=== PATIENT | male | born 1995 | race Caucasian/White ===

== ENCOUNTER 2016-12-04 23:24 | Emergency (ER) | payer MEDICAID ==
[2015-05-25 09:53] VITALS: BMI 20.6
== END 2016-12-05 00:53 | disposition home or self-care (01) ==
LOC: D.ER 23:24
DX: F41.9 Anxiety disorder, unspecified (principal); F17.200 Nicotine dependence, unspecified, uncomplicated

== ENCOUNTER 2017-09-27 22:54 | Emergency (ER) | payer MEDICAID ==
[2015-05-25 09:53] VITALS: BMI 20.6
== END 2017-09-28 01:14 | disposition home or self-care (01) ==
LOC: D.ER 22:54
DX: S09.93XA Unspecified injury of face, initial encounter (principal); Y04.2XXA Assault by strike against or bumped into by another person, initial encounter; Y93.89 Activity, other specified; Y92.89 Other specified places as the place of occurrence of the external cause; S01.81XA Laceration without foreign body of other part of head, initial encounter; F17.200 Nicotine dependence, unspecified, uncomplicated

== ENCOUNTER 2018-02-21 01:47 | Emergency (ER) | payer MEDICAID ==
[2015-05-25 09:53] VITALS: BMI 20.6
[2018-02-21 02:16] LABS: BASOPHILS 0.6 % (0-2); EOSINOPHILS 1.2 % (0-7); HEMATOCRIT 44.3 % (42.0-54.0); HEMOGLOBIN 15.3 g/dL (13.5-17.5); IMMATURE GRANULOCYTES 0.2 % (0-5); LYMPHOCYTES 25.3 % (15-50); MCH 31.5 pg (26.0-34.0); MCHC 34.5 g/dL (31.0-37.0); MCV 91.3 fL (80.0-100.0); MEAN PLATELET VOLUME 9.4 fL (7.4-10.4); MONOCYTES 11.3 % (2-11); NEUTROPHILS 61.4 % (40-80); PLATELET COUNT 224 10x3/uL (130-400); RBC 4.85 10x6/uL (4.20-6.10); RDW 12.2 % (11.5-14.5); WBC 9.5 10x3/uL (4.8-10.8)
[2018-02-21 02:33] LABS: UDS - AMPHET NEGATIVE QUAL (NEGATIVE); UDS - BARB NEGATIVE QUAL (NEGATIVE); UDS - BENZO POSITIVE QUAL (NEGATIVE); UDS - COCAINE NEGATIVE QUAL (NEGATIVE); UDS - OPIATE NEGATIVE QUAL (NEGATIVE); UDS - PCP NEGATIVE QUAL (NEGATIVE); UDS - THC NEGATIVE QUAL (NEGATIVE)
[2018-02-21 02:34] LABS: APPEARANCE CLEAR (CLEAR); BILIRUBIN NEGATIVE (NEGATIVE); COLOR YELLOW (YELLOW); GLUCOSE NEGATIVE (NEGATIVE); KETONE NEGATIVE (NEGATIVE); NITRITE NEGATIVE (NEGATIVE); PROTEIN NEGATIVE (NEGATIVE); UROBILINOGEN NORMAL (NORMAL)
[2018-02-21 02:35] LABS: ALBUMIN 3.8 g/dL (3.4-5.0); ALKALINE PHOSPHATASE 61 U/L (46-116); ALT (SGPT) 14 U/L (10-68); BILIRUBIN - TOTAL 0.38 mg/dL (0.2-1.3); CALC OSMOLALITY 282 mosm/kg (275-300); CALCIUM 8.4 mg/dL (8.5-10.1); CARBON DIOXIDE 28.1 mmol/L (21.0-32.0); CHLORIDE - SERUM 105 mmol/L (98-107); CREATININE - SERUM 1.1 mg/dL (0.6-1.3); GLUCOSE 96 mg/dL (74-106); POTASSIUM - SERUM 3.8 mmol/L (3.5-5.1); PROTEIN - SERUM 6.7 g/dL (6.4-8.2); SODIUM 141 mmol/L (136-145); UREA NITROGEN 18 mg/dL (7-18); eGFR NON AFRICAN AMERICAN 89 mL/min (90-120)
== END 2018-02-21 04:40 | disposition home or self-care (01) ==
LOC: D.ER 01:47
PROVIDERS: Family Medicine
DX: F41.9 Anxiety disorder, unspecified (principal); F17.200 Nicotine dependence, unspecified, uncomplicated

== ENCOUNTER 2018-03-23 02:36 | Emergency (ER) | payer MEDICAID ==
[2015-05-25 09:53] VITALS: BMI 20.6
== END 2018-03-23 02:59 | disposition home or self-care (01) ==
LOC: D.ER 02:36
DX: F41.0 Panic disorder [episodic paroxysmal anxiety] (principal); Y04.2XXA Assault by strike against or bumped into by another person, initial encounter; Y93.89 Activity, other specified; Y92.019 Unspecified place in single-family (private) house as the place of occurrence of the external cause

== ENCOUNTER 2018-05-22 22:30 | Emergency (ER) | payer MEDICAID ==
[~2018-05-22] VITALS: Ht 182.9 cm; Wt 84.1 kg
[2018-05-22 23:09] VITALS: Ht 182.9 cm; Wt 84.1 kg
[2018-05-23] MEDS ORDERED: TORADOL10 MG PO (01:38)
[2018-05-23 01:49] VITALS: BP 132/80
== END 2018-05-23 01:52 | disposition home or self-care (01) ==
LOC: D.ER 22:30
DX: S93.402A Sprain of unspecified ligament of left ankle, initial encounter (principal); X58.XXXA Exposure to other specified factors, initial encounter; Y93.89 Activity, other specified; Y92.019 Unspecified place in single-family (private) house as the place of occurrence of the external cause; F17.200 Nicotine dependence, unspecified, uncomplicated

== ENCOUNTER 2018-08-26 18:54 | Emergency (ER) | payer SELFPAY ==
[~2018-08-26] VITALS: Ht 182.9 cm; Wt 63.6 kg
[~2018-08-26 18:54] MED LIST: TORADOL10 MG PO
[2018-08-26 18:56] VITALS: Ht 182.9 cm; Wt 63.6 kg
[2018-08-26] MEDS ORDERED: ULTRAM50 MG PO (19:47)
[2018-08-26] MEDS ORDERED: VIBRAMYCIN 100100 MG PO (19:48)
[2018-08-26] MEDS ORDERED: VOLTAREN75 MG PO (19:48)
[2018-08-26 20:02] VITALS: BP 121/62
== END 2018-08-26 20:02 | disposition home or self-care (01) ==
LOC: D.ER 18:54
DX: L03.032 Cellulitis of left toe (principal)

== ENCOUNTER 2018-11-14 05:25 | Emergency (ER) | payer SELFPAY ==
[~2018-11-14] VITALS: Ht 182.9 cm; Wt 72.7 kg
[~2018-11-14 05:25] MED LIST changes: +ULTRAM50 MG PO; +VIBRAMYCIN 100100 MG PO; +VOLTAREN75 MG PO
[2018-11-14 05:28] VITALS: Ht 182.9 cm; Wt 72.7 kg
[2018-11-14] MEDS ORDERED: NORCO 5/325 TAB1 TAB PO (06:10)
[2018-11-14 06:17] VITALS: BP 124/86
== END 2018-11-14 06:17 | disposition home or self-care (01) ==
LOC: D.ER 05:25
DX: S20.211A Contusion of right front wall of thorax, initial encounter (principal); W18.31XA Fall on same level due to stepping on an object, initial encounter; Y93.89 Activity, other specified; Y92.89 Other specified places as the place of occurrence of the external cause; F17.200 Nicotine dependence, unspecified, uncomplicated

== ENCOUNTER 2019-03-06 12:18 | Emergency (ER) | payer MEDICAID ==
[~2019-03-06] VITALS: Ht 182.9 cm; Wt 77.3 kg
[~2019-03-06 12:18] MED LIST changes: +NORCO 5/325 TAB1 TAB PO
[2019-03-06 12:25] VITALS: BP 125/80
[2019-03-06] MEDS ORDERED: XANAX1 MG PO (12:28)
[2019-03-06 12:39] VITALS: Ht 182.9 cm; Wt 77.3 kg
[2019-03-06 12:53] LABS: APPEARANCE CLEAR (CLEAR); BILIRUBIN NEGATIVE (NEGATIVE); COLOR YELLOW (YELLOW); GLUCOSE NEGATIVE (NEGATIVE); KETONE NEGATIVE (NEGATIVE); NITRITE NEGATIVE (NEGATIVE); PROTEIN NEGATIVE (NEGATIVE); UROBILINOGEN NORMAL (NORMAL)
== END 2019-03-06 13:57 | disposition home or self-care (01) ==
LOC: D.ER 12:18
PROVIDERS: Family Medicine
DX: A64 Unspecified sexually transmitted disease (principal)

== ENCOUNTER 2019-07-23 22:48 | Emergency (ER) | payer MEDICAID ==
[~2019-07-23] VITALS: Ht 182.9 cm; Wt 72.8 kg
[~2019-07-23 22:48] MED LIST changes: +XANAX1 MG PO
[2019-07-23 22:55] VITALS: Ht 182.9 cm; Wt 72.8 kg
[2019-07-24] MEDS ORDERED: CLEOCIN HCL300 MG PO (00:42)
[2019-07-24] MEDS ORDERED: TORADOL10 MG PO (00:42)
[2019-07-24 01:11] VITALS: BP 130/92
== END 2019-07-24 01:02 | disposition home or self-care (01) ==
LOC: D.ER 22:48
DX: K08.89 Other specified disorders of teeth and supporting structures (principal); K02.9 Dental caries, unspecified

== ENCOUNTER 2019-11-16 17:52 | Emergency (ER) | payer MEDICAID ==
[~2019-11-16] VITALS: Ht 182.9 cm; Wt 68.2 kg
[~2019-11-16 17:52] MED LIST changes: +CLEOCIN HCL300 MG PO
[2019-11-16 18:14] VITALS: Ht 182.9 cm; Wt 68.2 kg
[2019-11-16] MEDS ORDERED: NAPROSYN500 MG PO (19:37)
[2019-11-16] MEDS ORDERED: AMOXICILLIN500 M1 PO (19:37)
[2019-11-16 19:55] VITALS: BP 131/77
== END 2019-11-16 19:56 | disposition home or self-care (01) ==
LOC: D.ER 17:52
DX: K04.7 Periapical abscess without sinus (principal); K08.89 Other specified disorders of teeth and supporting structures; Z72.0 Tobacco use

== ENCOUNTER 2019-12-05 04:50 | Emergency (ER) | payer MEDICAID ==
[~2019-12-05] VITALS: Ht 182.9 cm; Wt 72.7 kg
[~2019-12-05 04:50] MED LIST changes: +AMOXICILLIN500 M1 PO; +NAPROSYN500 MG PO
[2019-12-05 04:54] VITALS: Ht 182.9 cm; Wt 72.7 kg
[2019-12-05 08:37] VITALS: BP 123/68
== END 2019-12-05 08:39 | disposition home or self-care (01) ==
LOC: D.ER 04:50
DX: F10.129 Alcohol abuse with intoxication, unspecified (principal); Y90.9 Presence of alcohol in blood, level not specified; S02.2XXA Fracture of nasal bones, initial encounter for closed fracture; Y09 Assault by unspecified means; Y93.9 Activity, unspecified; Y92.9 Unspecified place or not applicable

== ENCOUNTER 2019-12-10 21:07 | Emergency (ER) | payer MEDICAID ==
[~2019-12-10] VITALS: Ht 182.9 cm; Wt 72.7 kg
[2019-12-10 21:16] VITALS: Ht 182.9 cm; Wt 72.7 kg
[2019-12-10] MEDS ORDERED: VOLTAREN75 MG PO (21:45)
[2019-12-10] MEDS ORDERED: BACLOFEN20 M1 PO (21:45)
[2019-12-10 22:19] VITALS: BP 118/71
== END 2019-12-10 22:15 | disposition home or self-care (01) ==
LOC: D.ER 21:07
DX: S20.211A Contusion of right front wall of thorax, initial encounter (principal); Y09 Assault by unspecified means; Y93.9 Activity, unspecified; Y92.9 Unspecified place or not applicable

== ENCOUNTER 2020-02-16 18:55 | Emergency (ER) | payer MEDICAID ==
[~2020-02-16] VITALS: Ht 182.9 cm; Wt 72.7 kg
[~2020-02-16 18:55] MED LIST changes: +BACLOFEN20 M1 PO
[2020-02-16 19:07] VITALS: BP 122/89; Ht 182.9 cm; Wt 72.7 kg
== END 2020-02-16 19:20 | disposition left against medical advice (07) ==
LOC: D.ER 18:55
DX: R05 Cough (principal)

== ENCOUNTER 2020-05-05 17:14 | Emergency (ER) | payer MEDICAID ==
[~2020-05-05] VITALS: Ht 182.9 cm; Wt 88.6 kg
[2020-05-05 17:41] VITALS: Ht 182.9 cm; Wt 88.6 kg
[2020-05-05] MEDS ORDERED: IBUPROFEN800 MG PO (18:26)
[2020-05-05 18:47] VITALS: BP 142/84
== END 2020-05-05 18:49 | disposition home or self-care (01) ==
LOC: D.ER 17:14
DX: S52.202A Unspecified fracture of shaft of left ulna, initial encounter for closed fracture (principal); W19.XXXA Unspecified fall, initial encounter; Y93.9 Activity, unspecified; Y92.9 Unspecified place or not applicable

== ENCOUNTER 2020-08-07 09:32 | Emergency (ER) | payer MEDICAID ==
[~2020-08-07] VITALS: Ht 182.9 cm; Wt 68.2 kg
[~2020-08-07 09:32] MED LIST changes: +IBUPROFEN800 MG PO
[2020-08-07 09:34] VITALS: Ht 182.9 cm; Wt 68.2 kg
[2020-08-07 10:05] LABS: BASOPHILS 0.9 % (0-2); EOSINOPHILS 2.5 % (0-7); HEMATOCRIT 45.1 % (42.0-54.0); HEMOGLOBIN 15.2 g/dL (13.5-17.5); IMMATURE GRANULOCYTES 0.6 % (0-5); LYMPHOCYTES 20.2 % (15-50); MCH 31.5 pg (26.0-34.0); MCHC 33.7 g/dL (31.0-37.0); MCV 93.4 fL (80.0-100.0); MEAN PLATELET VOLUME 9.4 fL (7.4-10.4); MONOCYTES 8.5 % (2-11); NEUTROPHILS 67.3 % (40-80); RBC 4.83 10x6/uL (4.20-6.10); RDW 13.9 % (11.5-14.5); WBC 13.8 10x3/uL (4.8-10.8)
[2020-08-07 10:14] LABS: PLATELET COUNT 397 10x3/uL (130-400)
[2020-08-07 10:30] LABS: CALC OSMOLALITY 282 mosm/kg (275-300); CALCIUM 8.7 mg/dL (8.5-10.1); CARBON DIOXIDE 23.9 mmol/L (21.0-32.0); CHLORIDE - SERUM 106 mmol/L (98-107); GLUCOSE 142 mg/dL (74-106); POTASSIUM - SERUM 3.7 mmol/L (3.5-5.1); SODIUM 139 mmol/L (136-145); UREA NITROGEN 22 mg/dL (7-18); eGFR NON AFRICAN AMERICAN > 90 mL/min (90-120)
[2020-08-07 10:35] LABS: ALBUMIN 3.7 g/dL (3.4-5.0); ALKALINE PHOSPHATASE 89 U/L (30-120); ALT (SGPT) 11 U/L (10-68); BILIRUBIN - TOTAL 0.22 mg/dL (0.2-1.3); PROTEIN - SERUM 6.6 g/dL (6.4-8.2)
[2020-08-07 11:04] LABS: BILIRUBIN NEGATIVE (NEGATIVE); KETONE NEGATIVE (NEGATIVE); NITRITE NEGATIVE (NEGATIVE); UROBILINOGEN NORMAL mg/dL (< 2)
[2020-08-07 11:08] LABS: APTT 27.4 SECONDS (22.8-39.4); INR 1.09 (0.85-1.17); PROTIME 14.1 SECONDS (11.6-15.0)
[2020-08-07] MEDS ORDERED: IBUPROFEN800 MG PO (11:29)
[2020-08-07] MEDS ORDERED: CYCLOBENZAPRINE10 MG PO (11:29)
[2020-08-07] MEDS ORDERED: ACETAMINOPHEN500 M1 PO (11:29)
[2020-08-07 11:59] VITALS: BP 142/68
== END 2020-08-07 12:00 | disposition home or self-care (01) ==
LOC: D.ER 09:32
PROVIDERS: Family Medicine
DX: M79.605 Pain in left leg (principal); M79.604 Pain in right leg; M79.602 Pain in left arm; M79.601 Pain in right arm; T14.8XXA Other injury of unspecified body region, initial encounter; V89.2XXA Person injured in unspecified motor-vehicle accident, traffic, initial encounter

== ENCOUNTER 2021-03-25 13:47 | Emergency (ER) | payer BC ==
[2020-10-15 23:42] VITALS: Ht 182.9 cm; Wt 77.3 kg
[~2021-03-25] VITALS: Ht 182.9 cm; Wt 77.3 kg
[~2021-03-25 13:47] MED LIST changes: +ACETAMINOPHEN500 M1 PO; +CYCLOBENZAPRINE10 MG PO; +DICLOFENAC SODI50 MG PO
[2021-03-25 14:52] LABS: INFLUENZA TYPE A NEGATIVE (NEGATIVE); INFLUENZA TYPE B NEGATIVE (NEGATIVE); SARS-CoV-2 ANTIGEN NEGATIVE- SARS-COV-2 (NEGATIVE)
[2021-03-25 15:08] LABS: HEMATOCRIT 45.5 % (42.0-54.0); HEMOGLOBIN 15.2 g/dL (13.5-17.5); LYMPHOCYTE ABS# 2.57 10x3/uL (1.32-3.57); MCH 31.8 pg (26.0-34.0); MCHC 33.4 g/dL (31.0-37.0); MCV 95.2 fL (80.0-100.0); MEAN PLATELET VOLUME 9.3 fL (7.4-10.4); NEUTROPHIL ABS# 17.56 10x3/uL (1.78-5.38); PLATELET COUNT 403 10x3/uL (130-400); RBC 4.78 10x6/uL (4.20-6.10); RDW 12.8 % (11.5-14.5); WBC 23.3 10x3/uL (4.8-10.8)
[2021-03-25 15:21] LABS: CALC OSMOLALITY 275 mosm/kg (275-300); CALCIUM 8.8 mg/dL (8.5-10.1); CARBON DIOXIDE 26.8 mmol/L (21.0-32.0); CHLORIDE - SERUM 104 mmol/L (98-107); CREATININE - SERUM 1.2 mg/dL (0.6-1.3); GLUCOSE 114 mg/dL (74-106); POTASSIUM - SERUM 3.8 mmol/L (3.5-5.1); SODIUM 138 mmol/L (136-145); UREA NITROGEN 11 mg/dL (7-18); eGFR NON AFRICAN AMERICAN 78 mL/min (90-120)
[2021-03-25 15:28] LABS: ALBUMIN 3.3 g/dL (3.4-5.0); ALKALINE PHOSPHATASE 80 U/L (30-120); ALT (SGPT) 14 U/L (10-68); PROTEIN - SERUM 6.7 g/dL (6.4-8.2)
[2021-03-25 15:33] LABS: LYMPHOCYTES 16 % (15-50); MONOCYTES 7 % (2-11); NEUTROPHILS 73 % (40-80)
[2021-03-25 15:34] LABS: PLATELET ESTIMATE NORMAL
[2021-03-25 15:58] LABS: BILIRUBIN NEGATIVE (NEGATIVE); KETONE NEGATIVE (NEGATIVE); NITRITE NEGATIVE (NEGATIVE); UROBILINOGEN NORMAL mg/dL (< 2)
[2021-03-25] MEDS ORDERED: AUGMENTIN 875-11 TAB PO (17:31)
[2021-03-25] MEDS ORDERED: DICLOFENAC SODI50 MG PO (17:31)
[2021-03-25 17:37] VITALS: BP 112/78
== END 2021-03-25 17:39 | disposition home or self-care (01) ==
LOC: D.ER 13:47
PROVIDERS: Family Medicine
DX: R50.9 Fever, unspecified (principal); D72.829 Elevated white blood cell count, unspecified; J03.90 Acute tonsillitis, unspecified

== ENCOUNTER 2021-04-23 23:03 | Emergency (ER) | payer BC ==
[~2021-04-23] VITALS: Ht 182.9 cm; Wt 75.0 kg
[~2021-04-23 23:03] MED LIST changes: +AUGMENTIN 875-11 TAB PO; +DOXYCYCLINE HY100 M2 PO; +TERBINAFINE HC250 MG PO
[2021-04-23 23:07] VITALS: Ht 182.9 cm; Wt 75.0 kg
[2021-04-24 00:23] VITALS: BP 137/78
== END 2021-04-24 00:23 | disposition home or self-care (01) ==
LOC: D.ER 23:03
DX: B35.6 Tinea cruris (principal); L73.9 Follicular disorder, unspecified

== ENCOUNTER 2021-04-27 23:40 | Emergency (ER) | payer BC ==
[~2021-04-27] VITALS: Ht 182.9 cm; Wt 72.7 kg
[2021-04-27 23:47] VITALS: BP 132/72; Ht 182.9 cm; Wt 72.7 kg
[2021-04-28] MEDS ORDERED: ORALONE5 GM TOPICAL (00:11)
[2021-04-28] MEDS ORDERED: AMOXICILLIN500 M1 PO (00:11)
== END 2021-04-28 00:18 | disposition home or self-care (01) ==
LOC: D.ER 23:40
DX: K02.9 Dental caries, unspecified (principal); K08.89 Other specified disorders of teeth and supporting structures